=== PATIENT | male | born 1985 | race Caucasian/White ===

== ENCOUNTER 2017-05-10 12:09 | Emergency (ER) | payer SELFPAY ==
[~2017-05-10] VITALS: Ht 180.3 cm; Wt 136.1 kg
[2017-05-10 12:18] VITALS: BP_SYST 152
[2017-05-10] MEDS ORDERED: DIPH-TET Vacc 0.5 ML VIAL I.M. ONE (13:45)
[2017-05-10 18:35] VITALS: BP_SYST 145
== END 2017-05-10 18:35 | disposition home or self-care (01) ==
LOC: SED 12:09
DX: T22.011A Burn of unspecified degree of right forearm, initial encounter (principal); M79.1 Myalgia; Z88.6 Allergy status to analgesic agent; F41.9 Anxiety disorder, unspecified; F32.9 Major depressive disorder, single episode, unspecified; F17.210 Nicotine dependence, cigarettes, uncomplicated; X08.8XXA Exposure to other specified smoke, fire and flames, initial encounter; Y93.89 Activity, other specified; Y92.89 Other specified places as the place of occurrence of the external cause; Y99.8 Other external cause status
CPT/HCPCS: 73200-TC; 90714; 99284

== ENCOUNTER 2018-08-12 10:17 | Emergency (ER) | payer MEDICAID ==
[~2018-08-12] VITALS: Ht 180.3 cm; Wt 145.1 kg
[2018-08-12 10:17] VITALS: BP_SYST 162
[2018-08-12] MEDS ORDERED: KETOROLAC TROMETHAMINE 60 MG/2 ML VIAL IM ONE (10:30)
[2018-08-12 11:15] VITALS: BP_SYST 162
== END 2018-08-12 11:15 | disposition home or self-care (01) ==
LOC: SED 10:17
DX: S29.011A Strain of muscle and tendon of front wall of thorax, initial encounter (principal); F17.210 Nicotine dependence, cigarettes, uncomplicated; F41.8 Other specified anxiety disorders; X58.XXXA Exposure to other specified factors, initial encounter; Y93.89 Activity, other specified; Y92.89 Other specified places as the place of occurrence of the external cause; Y99.8 Other external cause status
CPT/HCPCS: 71045; 71100; 96372; 99284; J1885

== ENCOUNTER 2018-12-08 10:24 | Emergency (ER) | payer MEDICAID ==
[~2018-12-08] VITALS: Ht 180.3 cm; Wt 140.6 kg
[2018-12-08 10:32] VITALS: BP_SYST 154
[2018-12-08 11:27] LABS: BILIRUBIN,URINE 1+ (NEGATIVE); CLARITY/URINE CLEAR (CLEAR); COLOR,URINE YELLOW (YELLOW); GLUCOSE,URINE NEGATIVE (NEGATIVE); KETONES,URINE TRACE (NEGATIVE); LEUKOCYTE ESTERASE ,URINE NEGATIVE (NEGATIVE); NITRITE, URINE NEGATIVE (NEGATIVE); PH,URINE 5.5 (5.0-8.0); PROTEIN URINE 1+ (NEGATIVE)
[2018-12-08 11:32] LABS: BLOOD, URINE TRACE (NEGATIVE)
[2018-12-08 12:00] LABS: BACTERIA,URINE FEW /HPF (None Seen); CALCIUM OXALATE CRYSTALS,UR 0-10 /HPF (None Seen); MUCUS,URINE 3+ /LPF (None Seen); WBC,URINE 0-3 /HPF (0-3)
[2018-12-08 12:56] VITALS: BP_SYST 154
== END 2018-12-08 12:56 | disposition home or self-care (01) ==
LOC: SED 10:24
DX: H60.93 Unspecified otitis externa, bilateral (principal); N39.0 Urinary tract infection, site not specified; E66.01 Morbid (severe) obesity due to excess calories; F41.9 Anxiety disorder, unspecified; F32.9 Major depressive disorder, single episode, unspecified; R03.0 Elevated blood-pressure reading, without diagnosis of hypertension; Z68.41 Body mass index [BMI] 40.0-44.9, adult
CPT/HCPCS: 81000-TC; 99283

== ENCOUNTER 2019-10-14 16:20 | Emergency (ER) | payer MEDICAID ==
[~2019-10-14] VITALS: Ht 180.3 cm; Wt 104.8 kg
[2019-10-14 16:34] VITALS: BP_SYST 163
--- NOTE | 2019-10-14 18:21 | NUR ---
Patient was wheeled into ED c/o left ankle pain s/p "hearing pop" in ankle on Thursday. Pt states he tried walking but was unable to because of the pain. Yesterday patient noticed that there was bruising and also that there's pain going up to the back of his leg.Patient also stated that yesterday he had rolled his ankle the other way. No other injuries/complaints per patient or noted.
--- NOTE | 2019-10-14 18:21 | NUR ---
Patient to ER [facility] to gown for evaluation. Side rails up.
--- NOTE | 2019-10-14 18:21 | NUR ---
ER Dr. Boyce at bedside examining patient.
--- NOTE | 2019-10-14 18:28 | NUR ---
Patient was moved to bed 7
[2019-10-14] MEDS ORDERED: IBUPROFEN 800 MG TABLET PO ONE (18:30)
--- NOTE | 2019-10-14 18:52 | NUR ---
Xray at bedside. Pt tolerated well.
--- NOTE | 2019-10-14 19:00 | NUR ---
Ultrasound at patient's bedside. Pt tolerated well.
[2019-10-14 19:37] VITALS: BP_SYST 148
--- NOTE | 2019-10-14 19:37 | NUR ---
Patient given written and verbal discharge instructions and verbalizes understanding. ER MD discussed with patient the results and treatment provided. Patient in stable condition. ID arm band removed. Rx of ibuprofen and [place] given. Patient educated on pain management and to follow up with PMD. Pain Scale 0. Opportunity for questions provided and answered. Medication side effect fact sheet provided.
== END 2019-10-14 19:37 | disposition home or self-care (01) ==
LOC: SED 16:20
DX: S93.402A Sprain of unspecified ligament of left ankle, initial encounter (principal); F41.9 Anxiety disorder, unspecified; X50.0XXA Overexertion from strenuous movement or load, initial encounter; Y93.89 Activity, other specified; Y92.89 Other specified places as the place of occurrence of the external cause; Y99.8 Other external cause status
CPT/HCPCS: 93971; 99284

== ENCOUNTER 2020-02-14 09:09 | Emergency (ER) | payer MEDICAID ==
[~2020-02-14] VITALS: Ht 180.3 cm; Wt 152.0 kg
[2020-02-14 09:17] VITALS: BP_SYST 138
[2020-02-14 10:05] LABS: BILIRUBIN,URINE NEGATIVE (NEGATIVE); BLOOD, URINE NEGATIVE (NEGATIVE); CLARITY/URINE CLEAR (CLEAR); COLOR,URINE YELLOW (YELLOW); GLUCOSE,URINE NEGATIVE (NEGATIVE); KETONES,URINE NEGATIVE (NEGATIVE); LEUKOCYTE ESTERASE ,URINE NEGATIVE (NEGATIVE); NITRITE, URINE NEGATIVE (NEGATIVE); PROTEIN URINE NEGATIVE (NEGATIVE); UROBILINOGEN,URINE 0.2 (0.2-1.0)
[2020-02-14 10:13] LABS: CREATININE 0.93 mg/dL (0.55-1.30)
[2020-02-14 10:14] LABS: BASOPHILS % (AUTO) 0.4 % (0.0-2.0); EOSINOPHILS # (AUTO) 0.2 K/uL (0.0-0.4); HEMATOCRIT 43.7 % (36-54); HEMOGLOBIN 15.1 g/dL (14.0-18.0); LYMPHOCYTES # (AUTO) 2.1 K/uL (1.0-5.5); LYMPHOCYTES % (AUTO) 27.9 % (20.5-51.5); MEAN CORPUSCULAR HEMOGLOBIN 29 pg (27-31); MEAN CORPUSCULAR HGB CONC 35 % (32-36); MEAN CORPUSCULAR VOLUME 83 fL (79.0-98.0); MONOCYTES # (AUTO) 0.5 K/uL (0.0-1.0); MONOCYTES % (AUTO) 6.2 % (1.7-9.3); NEUTROPHILS # (AUTO) 4.8 K/uL (1.8-7.7); NEUTROPHILS % (AUTO) 62.5 % (40.0-70.0); PLATELET COUNT (AUTO) 253 K/uL (130-430); RED BLOOD CELL COUNT(AUTO) 5.24 MIL/uL (4.2-6.2); RED CELL DISTRIBUTION WIDTH 12.7 % (9.0-15.0); WHITE BLOOD COUNT (AUTO) 7.6 K/uL (4.8-10.8)
[2020-02-14 10:20] LABS: ALBUMIN 3.5 g/dL (3.4-4.8); TOTAL BILIRUBIN 0.5 mg/dL (0.0-1.0)
[2020-02-14] MEDS ORDERED: MAG-AL HYDROX/SIMETH 30 ML UDC PO ONE (10:45)
[2020-02-14] MEDS ORDERED: KETOROLAC TROMETHAMINE 60 MG/2 ML VIAL IM ONE (10:45)
[2020-02-14] MEDS ORDERED: DICYCLOMINE HCL 10 MG/5 ML SOLUTION PO ONE (10:45)
[2020-02-14] MEDS ORDERED: LIDOCAINE VISCOUS 2%, 15 ML UDC MM ONE (10:45)
[2020-02-14] MEDS ORDERED: DICYCLOMINE HCL 10 MG/5 ML SOLUTION ONE (11:07)
[2020-02-14 13:12] VITALS: BP_SYST 129
== END 2020-02-14 13:12 | disposition home or self-care (01) ==
LOC: SED 09:09
DX: K80.20 Calculus of gallbladder without cholecystitis without obstruction (principal); F41.9 Anxiety disorder, unspecified
CPT/HCPCS: 36415; 76700; 80053; 81003; 83690; 85025; 93005; 96372; 99285; J1885; J2001

== ENCOUNTER 2021-06-06 15:46 | Emergency (ER) | payer OTHER, MEDICAID ==
[~2021-06-06] VITALS: Ht 180.3 cm; Wt 149.7 kg
[2021-06-06 15:50] VITALS: BP_SYST 168
[2021-06-06] MEDS ORDERED: HYDROcodone/ACETAMIN 5-325 MG TAB (NORCO/ VICODIN) PO ONE (17:15)
[2021-06-06 17:25] VITALS: BP_SYST 168
== END 2021-06-06 17:25 | disposition left against medical advice (07) ==
LOC: SED 15:46
DX: M79.602 Pain in left arm (principal); R07.89 Other chest pain; V49.49XA Driver injured in collision with other motor vehicles in traffic accident, initial encounter; Y93.89 Activity, other specified; Y92.89 Other specified places as the place of occurrence of the external cause; Y99.8 Other external cause status
CPT/HCPCS: 99281

== ENCOUNTER 2021-12-08 07:13 | Emergency (ER) | payer MEDICAID ==
[~2021-12-08] VITALS: Ht 180.3 cm; Wt 142.9 kg
[2021-12-08 07:41] VITALS: BP_SYST 148
[2021-12-08] MEDS ORDERED: HYDROmorphone 1 MG/ML INJ. CARTRIDGE IVP ONE (08:00)
[2021-12-08] MEDS ORDERED: NACL 0.9% 1,000 ML IV ONE (08:00)
[2021-12-08] MEDS ORDERED: KETOROLAC TROMETHAMINE 30 MG VIAL IVP ONE (08:00)
[2021-12-08] MEDS ORDERED: ONDANSETRON HCL 4 MG/2 ML VIAL IVP ONE (08:00)
[2021-12-08 08:34] LABS: BASOPHILS % (AUTO) 0.5 % (0.0-2.0); EOSINOPHILS # (AUTO) 0.3 K/uL (0.0-0.4); EOSINOPHILS % (AUTO) 3.5 % (0.0-4.0); HEMATOCRIT 48.4 % (36-54); HEMOGLOBIN 16.5 g/dL (14.0-18.0); LYMPHOCYTES # (AUTO) 2.2 K/uL (1.0-5.5); LYMPHOCYTES % (AUTO) 25.9 % (20.5-51.5); MEAN CORPUSCULAR HEMOGLOBIN 28 pg (27-31); MEAN CORPUSCULAR HGB CONC 34 % (32-36); MEAN CORPUSCULAR VOLUME 83 fL (79.0-98.0); MONOCYTES # (AUTO) 0.6 K/uL (0.0-1.0); MONOCYTES % (AUTO) 7.1 % (1.7-9.3); NEUTROPHILS # (AUTO) 5.3 K/uL (1.8-7.7); PLATELET COUNT (AUTO) 244 K/uL (130-430); RED BLOOD CELL COUNT(AUTO) 5.83 MIL/uL (4.2-6.2); RED CELL DISTRIBUTION WIDTH 12.9 % (9.0-15.0); WHITE BLOOD COUNT (AUTO) 8.4 K/uL (4.8-10.8)
[2021-12-08 09:18] LABS: CALCIUM 7.9 mg/dL (8.4-11.0); CREATININE 0.65 mg/dL (0.55-1.30)
[2021-12-08 09:25] LABS: TOTAL BILIRUBIN 0.9 mg/dL (0.0-1.0)
[2021-12-08] MEDS ORDERED: IBUP-1969 PO (11:32)
[2021-12-08] MEDS ORDERED: ONDA-8 TL (11:32)
[2021-12-08] MEDS ORDERED: HYDR-3917 PO (11:32)
[2021-12-08 11:40] VITALS: BP_SYST 113
== END 2021-12-08 11:40 | disposition home or self-care (01) ==
LOC: SED 07:13
DX: K80.50 Calculus of bile duct without cholangitis or cholecystitis without obstruction (principal); I10 Essential (primary) hypertension; Z79.899 Other long term (current) drug therapy
CPT/HCPCS: 36415; 74018; 76705; 80053; 83605; 83690; 85025; 87040; 96361; 96374; 96375; 99285; J1170; J1885; J2405; J7030